=== PATIENT | female | born 1990 | race Two or more races ===

== ENCOUNTER 2018-02-17 16:52 | Emergency (ER) | payer OTHER ==
[~2018-02-17] VITALS: Ht 157.5 cm; Wt 51.3 kg
--- NOTE | 2018-02-17 17:01 | NUR ---
PT BIBSELF FROM HOME; C/O SOB D/T PANIC ATTACK X3HRS, PER PT HAS HX OF ANXIETY. PT IS AAOX4, RESPIRATIONS EVEN AND UNLABORED, NO SOB, NAD NOTED, VSS, ON MONITOR, AWAITING ER PROVIDER EVAL
[2018-02-17] MEDS ORDERED: LORAZEPAM 1 MG TABLET PO ONE (17:30)
[2018-02-17 17:39] LABS: BASOPHILS # (AUTO) 0.1 /CMM (0.0-0.2); BASOPHILS % (AUTO) 1.4 % (0.0-2.0); EOSINOPHILS % (AUTO) 2.7 % (0.0-6.0); HEMATOCRIT 43 % (33-45); HEMOGLOBIN 14.9 g/dL (11.5-14.8); LYMPHOCYTES # (AUTO) 1.5 /CMM (0.8-4.8); LYMPHOCYTES % (AUTO) 25.6 % (20.0-44.0); MEAN CORPUSCULAR HGB CONC 35 g/dl (31.0-36.0); MEAN CORPUSCULAR VOLUME 93 fL (82-100); MONOCYTES # (AUTO) 0.8 /CMM (0.1-1.30); MONOCYTES % (AUTO) 12.4 % (2.0-12.0); NEUTROPHILS # (AUTO) 3.5 /CMM (1.8-8.9); NEUTROPHILS % (AUTO) 57.9 % (43.0-81.0); PLATELET COUNT (AUTO) 183 /CMM (150-450); RED BLOOD CELL COUNT(AUTO) 4.66 MIL/uL (4.0-5.2)
[2018-02-17 17:45] LABS: CREATININE 0.7 mg/dL (0.6-1.3); POTASSIUM 3.2 mmol/L (3.5-5.1)
[2018-02-17 17:48] LABS: APPEARANCE,URINE Clear (CLEAR); BILIRUBIN,URINE SMALL (NEGATIVE); BLOOD, URINE Negative Ery/uL (NEGATIVE); COLOR,URINE Yellow (YELLOW); KETONES,URINE 80 (NEGATIVE); LEUKOCYTE ESTERASE ,URINE Trace (NEGATIVE); NITRITE, URINE Negative (NEGATIVE); PH,URINE 5.5 (5.0-8.0); PROTEIN,URINE Negative (NEGATIVE); UGLUCOSE Negative (NEGATIVE); UROBILINOGEN,URINE 0.2 EU/dL (0.2)
[2018-02-17 17:51] LABS: BILIRUBIN,DIRECT 0.2 mg/dL (0.0-0.2); BILIRUBIN,TOTAL 0.8 mg/dL (0.2-1.0); TOTAL PROTEIN, SERUM 7.8 g/dL (6.4-8.2)
[2018-02-17 17:57] LABS: BACTERIA,URINE Few /HPF (None Seen); RBC,URINE 0-2 /HPF (0-2); SQUAMOUS EPITHELIAL CELL,UR Few /HPF (None Seen)
[2018-02-17] MEDS ORDERED: LORAZEPAM 1 MG TABLET ONE (18:23)
[2018-02-17] MEDS ORDERED: POTASSIUM CHLORIDE 20 MEQ TAB.PRT.SR PO ONE ×2 (19:00→19:05)
[2018-02-17] MEDS ORDERED: POTASSIUM CHLORIDE 10 MEQ TABLET.SA ONE (19:05)
--- NOTE | 2018-02-17 19:33 | NUR ---
Patient discharged to home in stable condition. Written and verbal after care instructions given. Patient verbalizes understanding of instruction.
[2018-02-17 19:37] VITALS: BP 121/81
== END 2018-02-17 19:39 | disposition home or self-care (01) ==
LOC: ER 16:56
DX: F41.9 Anxiety disorder, unspecified (principal); N39.0 Urinary tract infection, site not specified; E87.6 Hypokalemia; F41.0 Panic disorder [episodic paroxysmal anxiety]; F32.9 Major depressive disorder, single episode, unspecified
CPT/HCPCS: 36415; 71045; 80048; 80076; 81001; 83690; 84703; 85025; 87086; 93005; 99284; A4606; Z7610; 81000-TC